=== PATIENT | female | born 1990 | race American Indian/Alaskan Native ===

== ENCOUNTER 2019-12-17 21:45 | Inpatient (IN) | payer MEDICAID ==
[2019-12-17] MEDS ORDERED: METOCLOPRAMIDE 10 MG/2 ML INJ IV ONE (22:24)
[2019-12-17] MEDS ORDERED: FAMOTIDINE 20 MG/2 ML INJ IV ONE (22:24)
[2019-12-17] MEDS ORDERED: BICITRA ORAL LIQD 30ML PO ONE (22:24)
[2019-12-17] MEDS ORDERED: ceFAZolin/Water 2 GM/20 ML 2 GM/20 ML SYRINGE IV NR (23:00)
[2019-12-17] MEDS ORDERED: AMPICILLIN/NS 1 GM/50 ML 1 GM/50 ML BAG IV SCH (23:45)
[2019-12-17] MEDS ORDERED: AMPICILLIN/NS 2 GM/100 ML 2 GM/100 ML BAG IV ONE (23:56)
--- NOTE | 2019-12-18 00:04 | History and Physical Report ---
History of Present Illness Date of examination: 12/18/19 Date of admission: 12/17/19 21:45 Chief complaint: my water broke History of present illness: Pt is a 29 year old -Camb[place] female 12/22/19 at 39w3d who presents with rupture of membranes around 2030 pm. She reports irregular contractions. She denies vaginal bleeding. She has had care at [facility] since 11 wks complicated by BRCA1 positive status, tobacco use, false positive RPR, pyelectasis followed by MFM that resolved, glucose intolerance, previous section, migraines s/p Neuro consult, seizure disorder s/p Neuro consult, mandaen reason for refusal of blood transfusion with plan for Cellsaver at scheduled that was planned for later today. She is GBS positive. 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 History: chlamydia (treated, remote from this ), trichomonas (treated, remote from this ) Family/Genetic History: diabetes, stroke, cancer Social history: no significant social history - Obstetrical History Expected Date of Delivery: 12/22/19 Actual Gestation: 39 Week(s) 3 Day(s) : 8 Para: 1 Hx # Term Pregnancies: 1 Number of Pregnancies: 0 Spontaneous Abortions: 5 (2 ectopic, 3 SABs) Induced : 0 Number of Living Children: 1 Medications and Allergies Allergies Allergy/AdvReac Type Severity Reaction Status Date / Time No Known Allergies Allergy Unverified 10/05/14 19:24 Home Medications Medication Instructions Recorded Confirmed Last Taken Type No Known Home Medications [No 10/05/14 10/05/14 Unknown History Reported Home Medications] Active Meds: Active Medications Oxytocin/Sodium Chloride (Pitocin/Ns 20 Unit/1000ml Drip) 20 units in 1,000 mls @ 0 mls/hr IV TITR ELYSSA Lactated Ringer's (Lactated Ringers) 1,000 mls @ 2,250 mls/hr IV PREOP ELYSSA Stop: 12/18/19 23:27 Cefazolin Sodium (Ancef/Sterile Water 2 Gm/20 Ml) 2 gm in 20 mls @ 80 mls/hr IV PREOP NR; Protocol Stop: 12/18/19 22:59 Ampicillin Sodium (Ampicillin/Ns 2 Gm/100 Ml) 2 gm in 100 mls @ 100 mls/hr IV ONCE ONE; Protocol Stop: 12/18/19 00:55 Ampicillin Sodium (Ampicillin/Ns 1 Gm/50 Ml) 1 gm in 50 mls @ 100 mls/hr IV Q4HR [facility]; Protocol Review of Systems All systems: negative - Vital Signs Vital signs: Vital Signs Pulse Pulse Ox 112 H 99 12/17/19 22:23 12/17/19 22:23 Temp Pulse Resp BP Pulse Ox 116 H 118/72 98 12/17/19 23:03 12/17/19 22:33 12/17/19 23:03 - Physical Exam Breasts: Positive: deferred Cardiovascular: Regular rate Lungs: Positive: Clear to auscultation Abdomen: Positive: soft (gravid ) Uterus: Positive: enlarged (gravid ) Extremities: Positive: normal - Obstetrical FHR: auscultation normal Uterine Contraction Monitor Mode: External Cervical Dilatation: 1 (per RN) Uterine Contraction Pattern: Irregular Uterine Tone Measurement Phase: Resting Uterine Contraction Intensity: Moderate Results All other labs normal. Assessment and Plan A: IUP at 39w3d PROM Previous x 1 [employer]- Refuses Blood Transfusion. Plan for Cellsaver at section Undesired fertility- desires salpingectomy BRCA1 positive status GBS positive Tobacco Use P: Admit to labor and delivery Routine preop orders Contact cell saver Proceed with repeat section, bilateral salpingectomy and other indicated procedures
[2019-12-18] MEDS: LACTATED RINGERS 1,000 ML IV SCH ×2 (00:32→03:02)
[2019-12-18 00:53] LABS: Basophils % (Auto) 0.3 % (0.0-1.8); Eosinophils # (Auto) 0.1 K/mm3 (0.0-0.4); Eosinophils % (Auto) 0.5 % (0.0-4.3); Hematocrit 30.4 % (30.3-42.9); Mean Corpuscular HGB Conc 36 % (30-34); Mean Corpuscular Volume 88 fl (79-97); Monocytes # (Auto) 1.3 K/mm3 (0.0-0.8); Monocytes % (Auto) 7.6 % (0.0-7.3); Platelet Count 310 K/mm3 (140-440); Red Blood Count 3.47 M/mm3 (3.65-5.03); Red Cell Distribution Width 13.7 % (13.2-15.2)
--- NOTE | 2019-12-18 03:05 | Anesthesia Consultation ---
Anesthesia Consult and Med Hx Date of service: 12/18/19 - Airway Anesthetic Teeth Evaluation: Good ROM Head & Neck: Adequate Mental/Hyoid Distance: Adequate Mallampati Class: Class II Intubation Access Assessment: Probably Good - Pulmonary Exam CTA: Yes - Cardiac Exam Cardiac Exam: RRR - Pre-Operative Health Status ASA Pre-Surgery Classification: ASA3 Proposed Anesthetic Plan: Epidural - Pulmonary Hx Smoking: Yes (13 years) Hx Asthma: No COPD: No Hx Pneumonia: No - Cardiovascular System Hx Hypertension: No - Central Nervous System Hx Seizures: Yes (last seizure 3 weeks ago not on meds) Hx Psychiatric Problems: No - Endocrine Hx Renal Disease: No Hx End Stage Renal Disease: No Hx Hypothyroidism: No Hx Hyperthyroidism: No - Hematic Hx Anemia: No Hx Sickle Cell Disease: No - Other Systems Hx Alcohol Use: Yes Hx Obesity: Yes - Additional Comments Anesthesia Medical History Comments: refuses blood transfusion for confucianism reasons, hx migraines
--- NOTE | 2019-12-18 03:05 | Anesthesia Day of Surgery ---
Anesthesia Day of Surgery - Day of Surgery Patient Examined: Yes Patient H&P Reviewed: Yes Patient is NPO: Yes
[2019-12-18] MEDS ORDERED: ceFAZolin/STERILE WATER 2 GM/20 ML SYRINGE IV ONE (03:27)
[2019-12-18] MEDS ORDERED: LACTATED RINGERS 1000 ML IV SOLN IV ONE (03:27)
[2019-12-18] MEDS ORDERED: SODIUM CHLORIDE 0.9% 1000 ML 1,000 ML ONE (04:02)
[2019-12-18] MEDS ORDERED: HEPARIN 10,000 UNITS/10 ML VIAL IV ONE ×2 (04:11→05:00)
[2019-12-18] MEDS ORDERED: SODIUM CHLORIDE 0.9% 1000 ML IV SOLN IV ONE (04:17)
[2019-12-18] MEDS: OXYTOCIN 20 UNIT/1000ML DRIP 20 UNITS/1,000 ML BAG IV SCH ×2 (04:17→07:15)
[2019-12-18] MEDS ORDERED: SODIUM CHLORIDE 0.9% 100 ML ONE (04:28)
[2019-12-18] MEDS ORDERED: KETOROLAC 30 MG/1 ML INJ ONE (04:28)
[2019-12-18] MEDS ORDERED: OXYTOCIN 10 UNIT/1 ML INJ ONE (04:28)
[2019-12-18] MEDS ORDERED: LIDOCAINE MPF (2%) 20 MG/1 ML VIAL 5 ML ONE (04:28)
[2019-12-18] MEDS ORDERED: LIDOCAINE 2%/EPINEPHRINE 1:200,000 VIAL (20 ML) INFILTRATI ONE (04:53)
[2019-12-18] MEDS ORDERED: dexAMETHasone 20 MG/5 ML VIAL ONE (04:54)
[2019-12-18] MEDS ORDERED: BUPIVACAINE/PF (0.5%) 5 MG/1 ML 30 ML VIAL INFILTRATI ONE (04:54)
[2019-12-18] MEDS ORDERED: DEXMEDETOMIDINE 200 MCG/2 ML VIAL IV ONE (04:55)
--- NOTE | 2019-12-18 05:50 | Operative Report ---
Operative Report Operative Report: Date of procedure: December 18, 2019 Preoperative diagnosis: 1) IUP at 39w3d 2) PROM 3) Morbid Obesity 4) Undesired Fertility Postoperative diagnosis: Same Procedure: 1) Repeat low transverse section 2) Bilateral salpingectomy Surgeon: Miranda Gibson M.D. Anesthesia: Regional Findings: 1) Viable female , Apgars 8 and 9, weight 2436g, (5 lb 12.9 oz) in cephalic presentation. Meconium-stained fluid 2) Normal appearing ovaries and tubes Estimated blood loss: 500 mL Urine output: 100 mL, clear at the end of the procedure Drains: Whitt to gravity Specimens: Placenta, fallopian tubes to pathology Complications: Counts correct x 3 Disposition: Stable to PACU Indication for procedure: Pt is a 29 year old -Tuval[place] female 12/22/19 at 39w3d presents with rupture of membranes, one previous section and undesired fertility. Operation in detail: After the risks, benefits, alternatives and complications were explained to the patient she gave informed consent for the procedure. She was subsequently taken to the operating room where regional anesthesia was noted to be adequate. She was then placed in the dorsal supine position with leftward tilt and prepped and draped in a normal sterile fashion. heart tones were noted prior to incision. A timeout was performed. A Pfannenstiel skin incision was made with the knife and carried down to the layer of the fascia with the Bovie. The fascia was incised in the midline and the fascial incision was extended bilaterally with the Bovie. The fascial incision was then stretched. The rectus muscles were then in the midline and partially transected for adequate visualization. The peritoneum was then entered sharply between two Matilde clamps. The peritoneal incision was extended with good visualization of the bladder. The peritoneal incision was then stretched. An Jaswant retractor was placed. The bladder blade was placed. The vesicouterine peritoneum was incised with Metzenbaum scissors and a bladder flap was created. The bladder blade was replaced. A transverse incision was mad e in the lower uterine segment with a knife and extended bilaterally with the bandage scissors. The head was delivered without difficulty followed by delivery of the shoulders and body. was bulb suctioned at delivery. The cord was clamped and cut and the was handed to NICU staff in attendance. Cord blood was collected. The placenta was then delivered manually. The uterus was exteriorized and cleared of all clots and debris. The hysterotomy was then reapproximated with 1 Vicryl in a running locked fashion. A second layer of 1 Vicryl was used in an imbricating fashion. The hysterotomy was inspected and hemostasis was noted. Attention was then turned to the salpingectomy. The left tube was identified, grasped with a anel and followed out to the fimbriae. The mesosalpinx underlying the left tube was the progressively clamped, cauterized, cut and suture ligated with 3-0 Vicryl in a standard fashion until the entire tube was transected. The left fallopian tube was then sent to pathology. The same procedure was followed with the right fallopian tube. It was identified and followed to the fimbriae. The mesosalpinx underlying the right fallopian tube was progressively clamped, cut and suture ligated with 3-0 Vicryl in standard fashion until the right fallopian tube was excised. The right fallopian tube was then sent to pathology. Hemostasis was noted. Surgicel was placed over the pedicles bilaterally. The uterus was placed back into the peritoneal cavity. The gutters were irrigated and cleared of all clots and debris. The hysterotomy was again inspected and noted to be hemostatic. Surgicel was placed over the hysterotomy. The peritoneum was reapproximated with 2-0 Vicryl in a running fashion incorporating the rectus muscles. Surgicel was placed over the muscles. The fascia was reapproximated with 0-Vicryl in a running fashion. The skin was reapproximated with 4-0 Vicryl in a subcuticular fashion. The incision was then covered with steri strips and a pressure dressing. The procedure was then ended. The patient tolerated the procedure well and was taken to the PACU in stable condition. All instrument, lap, and needle counts were correct 3.
--- NOTE | 2019-12-18 05:50 | Procedure Note ---
OB Delivery Note - Delivery Date of Delivery: 12/18/19 Surgeon: SUYAPA JEAN Estimated blood loss: 500cc - Section Preop diagnosis: repeat , desires sterilization, other (rupture of membranes ) Postop diagnosis: same section procedure: section, repeat low transverse, other (bilateral salpingectomy ) Disposition: PACU Complications: none Narrative: Please see operative report - Infant A at 1 minute: 8 at 5 minutes: 9 Infant Gender: Female (2436g (5lb 12.9 oz) @ 0415 am)
--- NOTE | 2019-12-18 09:00 | Post Anesthesia Evaluation ---
- Post Anesthesia Evaluation Patient Participated: Yes Airway Patent: Yes Stable Respiratory Function: Yes Nausea/Vomiting: No Temp > 96.8F: Yes Pain Manageable: Yes Adequeate Hydration: Yes Anesthesia Complications: No Block Receding Appropriately: Yes Patient on Ventilator: No
[2019-12-18] MEDS ORDERED: NALOXONE 0.4 MG/1 ML INJ IV PRN (10:00)
[2019-12-18] MEDS ORDERED: D5W/LACTATED RINGERS 1,000 ML IV SCH (10:00)
[2019-12-18] MEDS ORDERED: OXYTOCIN 20 UNIT/1000ML DRIP 20 UNITS/1,000 ML BAG IV SCH (10:00)
[2019-12-18] MEDS ORDERED: LANOLIN/ZINC/DIMETHICONE (LANSINOH) 7 GM TP PRN (10:00)
[2019-12-18] MEDS ORDERED: ONDANSETRON 4 MG/2 ML INJ IV PRN (10:00)
[2019-12-18] MEDS ORDERED: ACETAMINOPHEN 325 MG TAB PO PRN (10:00)
[2019-12-18] MEDS: KETOROLAC 30 MG/1 ML INJ IV SCH ×2 (10:20→16:00)
[2019-12-18] MEDS: ceFAZolin/NS 1 GM/50 ML 1 GM/50 ML BAG IV SCH ×2 (12:23→23:00)
[2019-12-18] MEDS: oxyCODONE /ACETAMINOPHEN 5-325MG TAB PO PRN ×2 (12:23→19:52)
[2019-12-18] MEDS: WITCH HAZEL/ GLYCERIN PAD TP PRN (16:37)
[2019-12-18] MEDS: IBUPROFEN 800 MG TAB PO SCH ×2 (16:37→22:41)
[2019-12-18 19:38] LABS: Hematocrit 28.5 % (30.3-42.9); Hemoglobin 9.8 gm/dl (10.1-14.3)
[2019-12-18] MEDS: MORPHINE 2 MG/1 ML INJ IV PRN (23:06)
[2019-12-18] MEDS: MAGNESIUM HYDROXIDE (MOM) ORAL LIQD UDC PO SCH (23:20)
[2019-12-19] MEDS: MORPHINE 2 MG/1 ML INJ IV PRN (03:28)
[2019-12-19] MEDS: SIMETHICONE 80 MG CHEW TAB PO PRN ×2 (03:29→08:22)
[2019-12-19] MEDS: IBUPROFEN 800 MG TAB PO SCH ×2 (05:32→12:18)
[2019-12-19] MEDS: MAGNESIUM HYDROXIDE (MOM) ORAL LIQD UDC PO SCH (05:35)
[2019-12-19] MEDS ORDERED: TETANUS,DIPH,PERTUSS(ACELL) VACCINE 0.5 ML SYRINGE IM ONE (06:00)
--- NOTE | 2019-12-19 08:15 | Progress Note ---
Assessment and Plan - Patient Problems (1) delivery delivered Current Visit: Yes Status: Acute Plan to address problem: improve pain management topical hemorrhoid cream assist with bowel movement Subjective - Subjective Date of service: 12/19/19 Interval history: Patient reports worsening abdominal pain that she relates to gas pains. States she has not been effectively passing flatus and her hemorrhoids are enlarged. She is tolerating a clear diet. Pain has not been well controlled. Patient reports: appetite normal, voiding normally, pain poorly controlled, no bowel movement [place]: doing well Objective - Vital Signs Latest vital signs: Vital Signs Temp Pulse Resp BP Pulse Ox 12/19/19 03:28 18 12/18/19 23:25 98.2 F 95 H 20 129/71 97 12/18/19 23:06 18 12/18/19 22:41 18 12/18/19 19:52 18 12/18/19 12:13 98.0 F 76 18 110/65 99 Intake and Output 12/18/19 12/19/19 12/19/19 22:59 06:59 14:59 Intake Total 220 120 Output Total 700 Balance -480 120 Intake: IV 20 Right Forearm 20 Oral 200 120 Output: Urine 700 Void 700 Other: Total, Intake Amount 200 120 Total, Output Amount 400 # Voids Void 1 1 - Exam Abdomen: Present: normal appearance, soft Incision: Present: dressed - Labs Labs: Abnormal lab results 12/18/19 Range/Units 19:15 Hgb 9.8 L (10.1-14.3) gm/dl Hct 28.5 L (30.3-42.9) %
[2019-12-19] MEDS: oxyCODONE /ACETAMINOPHEN 5-325MG TAB PO PRN ×3 (08:22→20:18)
[2019-12-19] MEDS ORDERED: MAGNESIUM CITRATE 300 ML ORAL LIQD PO SCH (09:00)
[2019-12-19] MEDS ORDERED: HYDROCORTISONE 25 MG RECTAL SUPP PR PRN (09:00)
[2019-12-19] MEDS ORDERED: MEASLES, MUMPS & RUBELLA 12,500 UNIT/0.5 ML VACCINE SUB-Q ONE (11:00)
[2019-12-20] MEDS: IBUPROFEN 800 MG TAB PO SCH ×2 (01:05→10:49)
[2019-12-20] MEDS: SIMETHICONE 80 MG CHEW TAB PO PRN (01:10)
[2019-12-20] MEDS: oxyCODONE /ACETAMINOPHEN 5-325MG TAB PO PRN ×2 (03:26→09:37)
[2019-12-20 08:56] VITALS: BP 109/56
[2019-12-20] MEDS: FERROUS SULFATE 325 MG TAB PO SCH ×2 (09:37→10:52)
--- NOTE | 2019-12-20 10:11 | Progress Note ---
Assessment and Plan A: POD#2 s/p repeat section and bilateral salpingectomy at term, Asymptomatic anemia P: Routine postoperative care. Discharge today per pt request Subjective - Subjective Date of service: 12/20/19 Principal diagnosis: s/p repeat cesaren with salpingectomy at term Interval history: Pt with no unusual complaints but she is asking to go home. Patient reports: appetite normal, voiding normally, pain well controlled, flatus, bowel movement, ambulating normally [place]: doing well Objective - Vital Signs Latest vital signs: Vital Signs Temp Pulse Resp BP Pulse Ox 12/20/19 08:09 97.9 F 89 20 109/56 98 12/20/19 01:03 98.3 F 98 H 20 132/74 100 12/19/19 16:18 97.8 F 97 H 18 122/62 98 Intake and Output 12/19/19 12/20/19 12/20/19 22:59 06:59 14:59 Intake Total 1080 480 Balance 1080 480 Intake: Oral 480 480 Intake, Free Water 600 Other: Total, Intake Amount 480 240 # Voids Void 2 1 - Exam Breasts: Present: deferred Cardiovascular: Present: Regular rate Lungs: Present: Clear to auscultation Abdomen: Present: soft (obese ), normal bowel sounds Uterus: Present: fundal height below umbilicus Extremities: Present: edema (trace ) Incision: Present: intact (with steristrips )
--- NOTE | 2019-12-20 10:13 | Discharge Summary ---
Providers - Providers Date of Admission: 12/17/19 21:45 Date of discharge: 12/20/19 Attending physician: SUYAPA JEAN Primary care physician: SUYAPA JEAN Hospitalization Reason for admission: rupture of membranes Delivery: Procedure: section, repeat low transverse, other (bilateral salpingectomy ) Procedure details: Please see operative report Episiotomy: none Laceration: none Incision: intact Other procedures: none complications: none Discharge diagnosis: IUP at term delivered [place] baby: female Hospital course: The patient was admitted with rupture of membranes and went on to have a repeat section with bilateral salpingectomy which she tolerated well. Her postoperative course was uncomplicated and she met discharge criteria on day #2. She will follow-up in the office in 2 weeks for an incision check. Condition at discharge: Stable Disposition: DC-01 TO HOME OR SELFCARE - Discharge Diagnoses (1) Term of female Status: Acute (2) Obesity Status: Acute Qualifiers: Obesity classification: adult class 3 (BMI >= 40) Serious obesity comorbidity presence: unspecified whether serious comorbidity present Body mass index: BMI 40.0-44.9 (3) Anemia Status: Acute (4) Encounter for sterilization Status: Acute Plan - Discharge Medications Prescriptions: Ferrous Sulfate [Feosol 325 MG tab] 325 mg PO BID #60 tablet Ibuprofen [Motrin] 800 mg PO Q8HR PRN #30 tablet PRN Reason: Pain, Moderate (4-6) oxyCODONE /ACETAMINOPHEN [Percocet 5/325] 1 tab PO Q6HR PRN #40 tablet PRN Reason: Pain - Provider Discharge Summary Activity: routine, no sex for 6 weeks, no heavy lifting 4 weeks, no strenuous exercise Diet: routine Instructions: routine Additional instructions: [] Smoking cessation referral if applicable(refer to patient education folder for contact #) [] Refer to [facility] Booklet Call your doctor immediately for: * Fever > 100.5 * Heavy vaginal bleeding ( >1 pad per hour) * Severe persistent headache * Shortness of breath * Reddened, hot, painful area to leg or breast * Drainage or odor from incision. * Keep incision clean and dry at all times and follow doctor's instructions regarding bathing/showering - Follow up plan Follow up: VIVIANA COLLINS MD [Staff Physician] - 01/01/20 (Please call to schedule incision check appt )
[2019-12-20] MEDS: WITCH HAZEL/ GLYCERIN PAD TP PRN (10:48)
== END 2019-12-20 13:00 | disposition home or self-care (01) | DRG 765 ==
LOC: APU 21:45 → LD 23:04 → OB 12-18 08:04
PROVIDERS: ADMIT Obstetrics & Gynecology; ATTEND Obstetrics & Gynecology
PROC: 10D00Z1 Extraction of Products of Conception, Low, Open Approach (ICD-10-PCS; principal; 2019-12-18)
PROC: 0UB70ZZ Excision of Bilateral Fallopian Tubes, Open Approach (ICD-10-PCS; 2019-12-18)
PROC: 3E0234Z Introduction of Serum, Toxoid and Vaccine into Muscle, Percutaneous Approach (ICD-10-PCS; 2019-12-19)
PROC: 3E0134Z Introduction of Serum, Toxoid and Vaccine into Subcutaneous Tissue, Percutaneous Approach (ICD-10-PCS; 2019-12-19)
DX: O99.214 Obesity complicating childbirth (principal); D62 Acute posthemorrhagic anemia; O99.354 Diseases of the nervous system complicating childbirth; N13.30 Unspecified hydronephrosis; O42.92 Full-term premature rupture of membranes, unspecified as to length of time between rupture and onset of labor; Z3A.39 39 weeks gestation of pregnancy; Z37.0 Single live birth; Z23 Encounter for immunization; O99.824 Streptococcus B carrier state complicating childbirth; O99.334 Smoking (tobacco) complicating childbirth; F17.200 Nicotine dependence, unspecified, uncomplicated; G40.909 Epilepsy, unspecified, not intractable, without status epilepticus; Z30.2 Encounter for sterilization; O34.211 Maternal care for low transverse scar from previous cesarean delivery; G43.909 Migraine, unspecified, not intractable, without status migrainosus; O90.81 Anemia of the puerperium; Z83.3 Family history of diabetes mellitus; Z85.9 Personal history of malignant neoplasm, unspecified; Z82.49 Family history of ischemic heart disease and other diseases of the circulatory system; O99.89 Other specified diseases and conditions complicating pregnancy, childbirth and the puerperium; E66.01 Morbid (severe) obesity due to excess calories
CPT/HCPCS: 36415; 85014; 85018; 85025; 86850; 86900; 86901; 88302; G0378; J0290; J0690; J1100; J1644; J1885; J2270; J2590; J2765; J3490; J7030; J7120

== ENCOUNTER 2020-12-06 13:27 | Outpatient (CLI) | payer MEDICAID ==
--- NOTE | 2020-12-06 17:21 | Mammography Report ---
DIGITAL DIAGNOSTIC MAMMOGRAM WITH CAD , 12/06/2020 CLINICAL INFORMATION / INDICATION: The patient reports generalized pain in the central aspects of bot h breasts for approximately one year. TECHNIQUE: Digital bilateral mammographic imaging was performed. This examination was interpreted with the benefit of Computer-aided Detection analysis. COMPARISON: None. This is the patient's first mammogram. FINDINGS: Breast Density: The breasts are heterogeneously dense, which may obscure small masses. No dominant mass, suspicious calcifications or architectural distortion in either breast. IMPRESSION: No mammographic evidence of malignancy. Follow up recommendation: Clinical exam. Clinical correlation is recommended for the patient's bilate ral breast pain. BI-RADS Category 1: Negative. A "normal" or negative report should not discourage follow up or biopsy of a clinically significant f inding. A written summary of these findings will be mailed to the patient. The patient will be entered into a mammography reporting system which will generate a reminder letter for the patient's next appointmen t at the appropriate interval. According to the [employer], yearly mammograms are recommended starting at age 40 and continuing as long as a woman is in good health. Breast MRI is recommended for women with an river roximately 20-25% or greater lifetime risk of breast cancer, including women with a strong family his tory of breast or ovarian cancer and women who have been treated for Hodgkin's disease. Signer Name: Mercedes Schmid MD Signed: 12/06/2020 5:16 PM Workstation Name: [id number]
== END 2020-12-06 13:28 | disposition home or self-care (01) ==
LOC: SPVWC 13:27
PROVIDERS: ATTEND Surgery
DX: N60.11 Diffuse cystic mastopathy of right breast (principal); N60.12 Diffuse cystic mastopathy of left breast; Z15.89 Genetic susceptibility to other disease; Z80.3 Family history of malignant neoplasm of breast
CPT/HCPCS: 77066

== ENCOUNTER 2020-12-25 08:49 | Outpatient (CLI) | payer MEDICAID ==
--- NOTE | 2020-12-25 12:22 | Magnetic Resonance Report ---
MRI BREAST BILATERAL WITH AND WITHOUT CONTRAST, 12/25/2020 CLINICAL INFORMATION / INDICATION: GENETIC SUSCEPTABILITY/ FAM HX BREAST CA/ DIFFUSE MASTOPATHY BILA. Patient presents for high-risk screening breast MRI secondary to BRCA1 gene mutation. TECHNIQUE: Axial T1 and T2-weighted fat sat images were obtained precontrast. Gadolinium-based contra st was injected intravenously and serial axial T1 weighted images with fat saturation were obtained. 3-D MIP projections, kinetic analysis, and subtraction imaging were utilized to evaluate. A dedicated 8-channel breast coil was used for image acquisition. COMPARISON: Prior mammogram 12/06/2020 FINDINGS: BREAST DENSITY: The breasts are heterogeneously dense, which may obscure small masses. BACKGROUND ENHANCEMENT: Low level background enhancement within both breasts. RIGHT BREAST: No dominant mass or suspicious area of enhancement in the right breast. LEFT BREAST: There is a nodular area of enhancement with persistent enhancement kinetics in the 3:00 position of the left breast, posterior depth, measuring up to 1.7 cm (series 6, image 256). This is l ocated approximately 13 cm from the nipple, 1 cm from the lateral skin surface, and 2 cm from the [address] wall. No additional suspicious areas of enhancement identified in the left breast. There is no lef t axillary or internal mammary adenopathy. AXILLAE: No pathologically enlarged axillary lymph nodes. ADDITIONAL FINDINGS: Limited imaging of the thorax and upper abdomen demonstrates no focal abnormalit y. IMPRESSION: 1. A nodular area of enhancement in the left breast is low suspicion for malignancy. Recommend second look ultrasound to identify a potential correlate for biopsy. It is not seen sonographically, MRI gu ided biopsy could be performed. 2. No suspicious MRI abnormality identified in the right breast. Follow up recommendation: Biopsy BI-RADS Category 4: Suspicious for Malignancy. Signer Name: Vivian Anne MD Signed: 12/25/2020 12:17 PM Workstation Name: [id number]
== END 2020-12-25 08:50 | disposition home or self-care (01) ==
LOC: SPVIMAG 08:49
PROVIDERS: ATTEND Surgery
DX: N63.21 Unspecified lump in the left breast, upper outer quadrant (principal); N60.11 Diffuse cystic mastopathy of right breast; N60.12 Diffuse cystic mastopathy of left breast; Z15.89 Genetic susceptibility to other disease; Z80.3 Family history of malignant neoplasm of breast
CPT/HCPCS: A9577; C8908; 77049

== ENCOUNTER 2021-01-07 08:09 | Outpatient (CLI) | payer MEDICAID ==
--- NOTE | 2021-01-07 10:08 | Mammography Report ---
LEFT DIGITAL DIAGNOSTIC MAMMOGRAM WITH CAD , 01/07/2021 LEFT LIMITED BREAST ULTRASOUND CLINICAL INFORMATION / INDICATION: The patient has a history of abnormal breast MRI with an area of e nhancement in the left breast at the 3:00 position posterior depth. The patient reports a history of BRCA1 gene mutation TECHNIQUE: Digital left mammographic imaging was performed. Spot compression views were obtained. Munoz ited ultrasound was performed. This examination was interpreted with the benefit of Computer-Aided De tection (CAD) analysis. COMPARISON: Diagnostic mammogram, 12/06/2020. Breast MRI, 12/25/2020 FINDINGS: Breast Density: The breasts are heterogeneously dense, which may obscure small masses. MAMMOGRAPHIC FINDINGS: Spot compression views of the left breast at the 3:00 position demonstrates no focal mammographic abnormality. ULTRASOUND FINDINGS: Targeted ultrasound evaluation was performed of the area of interest. Sonograp hic evaluation of the lateral left breast demonstrates no evidence of suspicious solid mass or shadow ing. There is no focal sonographic finding to correspond to the area of enhancement seen on the MRI. IMPRESSION: No mammographic or sonographic evidence of malignancy. There is no mammographic or sonogr aphic correlate identified to correspond to the area of enhancement on the MRI. Therefore, MRI guided biopsy is recommended. Follow up recommendation: Biopsy BI-RADS Category 4: Suspicious for Malignancy. A "normal" or negative report should not discourage follow up or biopsy of a clinically significant f inding. A written summary of these findings will be mailed to the patient. The patient will be entered into a mammography reporting system which will generate a reminder letter for the patient's next appointmen t at the appropriate interval. According to the [employer], yearly mammograms are recommended starting at age 40 and continuing as long as a woman is in good health. Breast MRI is recommended for women with an river roximately 20-25% or greater lifetime risk of breast cancer, including women with a strong family his tory of breast or ovarian cancer and women who have been treated for Hodgkin's disease. Signer Name: Mercedes Schmid MD Signed: 01/07/2021 10:04 AM Workstation Name: [email or web address].
== END 2021-01-07 08:10 | disposition home or self-care (01) ==
LOC: SPVWC 08:09
PROVIDERS: ATTEND Surgery
DX: R92.2 Inconclusive mammogram (principal)

== ENCOUNTER 2021-02-04 08:19 | Outpatient (CLI) | payer MEDICAID ==
--- NOTE | 2021-02-04 11:07 | Mammography Report ---
DIGITAL DIAGNOSTIC MAMMOGRAM WITH CAD , 02/04/2021 CLINICAL INFORMATION / INDICATION: Postbiopsy mammogram is performed after MRI guided biopsy to docum ent clip placement TECHNIQUE: Digital left mammographic imaging was performed. This examination was interpreted with the benefit of Computer-aided Detection analysis. COMPARISON: MRI guided left breast biopsy, 02/04/2021. Breast MRI, 12/25/2020. Diagnostic mammogram, FINDINGS: Breast Density: The breasts are heterogeneously dense, which may obscure small masses. Postbiopsy mammogram confirms the biopsy clip to be in expected position at the 3:00 position posteri or depth. IMPRESSION: Satisfactory postbiopsy appearance of the left breast. Follow up recommendation: No recall. Post biopsy imaging. A "normal" or negative report should not discourage follow up or biopsy of a clinically significant f inding. A written summary of these findings will be mailed to the patient. The patient will be entered into a mammography reporting system which will generate a reminder letter for the patient's next appointmen t at the appropriate interval. According to the [employer], yearly mammograms are recommended starting at age 40 and continuing as long as a woman is in good health. Breast MRI is recommended for women with an river roximately 20-25% or greater lifetime risk of breast cancer, including women with a strong family his tory of breast or ovarian cancer and women who have been treated for Hodgkin's disease. Signer Name: Mercedes Schmid MD Signed: 02/04/2021 11:02 AM Workstation Name: [id number]
--- NOTE | 2021-02-04 15:14 | Magnetic Resonance Report ---
MRI guided left breast biopsy, 02/04/2021 CLINICAL INFORMATION/INDICATION: The patient has a history of abnormal breast MRI with nodular area o f enhancement at the 3:00 position posterior depth. There is no mammographic or sonographic correlate for this finding. Therefore, MRI guided biopsy is indicated. COMPARISON: Breast MRI, 12/25/2020. Diagnostic mammogram and ultrasound, 01/07/2021 PROCEDURE: Risks, benefits and indications to the procedure were discussed with the patient in detail, including bleeding, infection, hematoma formation and inadequate tissue sampling. The patient agreed to procee d with both verbal and written consent. A timeout procedure was performed with two patient identifier s. The patient was placed in the prone position in the MRI suite and localizer imaging was obtained usin g an 8 channel breast coil. Sagittal pre and post gadolinium fat-saturated sequences were obtained. The targeted area of interest was then identified and coordinates were determined. The breast was jordan ansed and prepped in the usual sterile fashion. Lidocaine 1% was used for superficial anesthesia. Lid ocaine 1% with epinephrine was used for deep anesthesia. A 9 gauge introducer sheath and stylette was then advanced to the appropriate position from the lateral approach. The stylette was replaced with an obturator. Subsequent sagittal sequences were obtained to confirm satisfactory positioning of the sheath. Multiple vacuum-assisted 9 gauge core samples were obtained in a round the clock fashion wit h an [facility] biopsy device. Post-biopsy images confirm satisfactory tissue sampling at the targeted loca tion. A biopsy clip was then deployed at the biopsy site and sheath was removed. Hemostasis achieved with manual pressure. A sterile pressure dressing was applied to the skin. The patient tolerated the procedure without difficulty. No complications were encountered. Post-biops y instructions were discussed with the patient and given in writing. IMPRESSION: 1. Technically successful MRI guided left breast biopsy. Biopsy results are pending and will be repor amilcar in an addendum. Signer Name: Mercedes Schmid MD Signed: 02/04/2021 3:09 PM Workstation Name: [id number]
== END 2021-02-04 08:20 | disposition home or self-care (01) ==
LOC: SPVIMAG 08:19
PROVIDERS: ATTEND Surgery
DX: R92.8 Other abnormal and inconclusive findings on diagnostic imaging of breast (principal); N63.20 Unspecified lump in the left breast, unspecified quadrant; E66.9 Obesity, unspecified; F17.210 Nicotine dependence, cigarettes, uncomplicated; Z79.899 Other long term (current) drug therapy; Z82.49 Family history of ischemic heart disease and other diseases of the circulatory system; Z83.3 Family history of diabetes mellitus; Z72.89 Other problems related to lifestyle
CPT/HCPCS: 19085; 77065; 88305; A4648; A9575